=== PATIENT | female | born 1960 | race Two or more races ===

== ENCOUNTER 2025-01-14 16:01 | Emergency (ER) | payer OTHER ==
[~2025-01-14] VITALS: Ht 149.9 cm; Wt 65.9 kg
[2025-01-14 16:07] VITALS: BP 152/67; PULSE 77; RESP 18; TEMP 98.2; O2SAT 100
[2025-01-14 17:10] LABS: CALCIUM, TOTAL 9.5 mg/dL (8.8-10.5); CREATININE 1.13 mg/dL (0.60-1.30); GLOMERULAR FILTR. RATE CALC 49 mL/min (>60); GLUCOSE,RANDOM 105 mg/dL (70-110); SODIUM SERUM 142 mmol/L (136-145); UREA NITROGEN, BLOOD 14 mg/dL (7-18)
[2025-01-14 17:11] LABS: PLATELET COUNT (AUTO) 286 K/uL (150-450); RED BLOOD CELL COUNT(AUTO) 5.46 MIL/uL (4.00-5.20); RED CELL DISTRIBUTION WIDTH 15.6 % (11.5-14.5); WHITE BLOOD COUNT (AUTO) 9.5 K/uL (4.5-11.0)
[2025-01-14 17:19] LABS: TROPONIN I-HIGH SENSITIVITY 15 ng/L (<51)
[2025-01-14 17:50] LABS: RBC MORPHOLOGY COMMENT ABNORMAL RBC MORPH
[2025-01-14] MEDS: ACETAMINOPHEN 500 MG TABLET PO ONE (18:00)
[2025-01-14] MEDS: POTASSIUM CHLORIDE 20 MEQ ER TABLET PO ONE (18:00)
== END 2025-01-14 18:01 | disposition home or self-care (01) ==
LOC: EMS 16:01
DX: S20.212A Contusion of left front wall of thorax, initial encounter (principal); E87.6 Hypokalemia; E78.00 Pure hypercholesterolemia, unspecified; I10 Essential (primary) hypertension; S20.222A Contusion of left back wall of thorax, initial encounter; S40.011A Contusion of right shoulder, initial encounter; S40.021A Contusion of right upper arm, initial encounter; S80.02XA Contusion of left knee, initial encounter; V49.9XXA Car occupant (driver) (passenger) injured in unspecified traffic accident, initial encounter; Y93.89 Activity, other specified; Y92.410 Unspecified street and highway as the place of occurrence of the external cause; Y99.8 Other external cause status
CPT/HCPCS: 71045; 80048; 84484; 85025; 93005; 99285; 36415-L1; 36415-TC